=== PATIENT | female | born 1955 | race Caucasian/White ===

== ENCOUNTER 2024-10-04 07:56 | Day surgery (SDC) | payer MEDICARE, OTHER ==
[2024-10-04] MEDS ORDERED: LIDOCAINE HCL 2% 100 MG/5 ML IJ ONE (07:57)
[2024-10-04] MEDS ORDERED: propofoL IV ONE (09:06)
--- NOTE | 2024-10-04 11:46 | XRAY ---
Indication: Bilateral L4-S1 MBB. Intraoperative fluoroscopy provided for 11 seconds. Single digital spot image submitted for interpretation demonstrates posterior needle tips projecting over the expected left and right L4-S1 nerve roots. Correlate with intraoperative findings/report.
--- NOTE | 2024-10-04 12:55 | XRAY ---
11 seconds of fluoroscopy was used in surgery for a bilateral L4-S1 MBB.
== END 2024-10-04 09:46 | disposition home or self-care (01) ==
LOC: SDC-PAIN 07:56
PROVIDERS: ATTEND Psychiatry & Neurology Pain Medicine
DX: M47.816 Spondylosis without myelopathy or radiculopathy, lumbar region (principal); E11.9 Type 2 diabetes mellitus without complications
CPT/HCPCS: 64493; 64494; 72020; 77002; 82947; J2704

== ENCOUNTER 2024-11-15 07:04 | Day surgery (SDC) | payer MEDICARE, OTHER ==
[2024-11-15] MEDS ORDERED: BUPIVACAINE 0.5% VIAL IJ ONE (07:05)
[2024-11-15] MEDS ORDERED: propofoL IV ONE (08:17)
--- NOTE | 2024-11-15 10:34 | XRAY ---
Indication: Bilateral L4-S1 MBB. Intraoperative fluoroscopy provided for 10 seconds. Single digital spot image submitted for interpretation demonstrates posterior needle tips project over expected left and right L4-S1 nerve roots. Correlate with intraoperative findings/report.
--- NOTE | 2024-11-15 10:39 | XRAY ---
10 seconds of fluoroscopy was used in surgery for a bilateral L5-S1 MBB.
== END 2024-11-15 08:48 | disposition home or self-care (01) ==
LOC: SDC-PAIN 07:04
PROVIDERS: ATTEND Psychiatry & Neurology Pain Medicine
DX: M47.816 Spondylosis without myelopathy or radiculopathy, lumbar region (principal); E11.9 Type 2 diabetes mellitus without complications
CPT/HCPCS: 64493; 64494; 72020; 77002; 82947; J2704

== ENCOUNTER 2025-01-25 06:51 | Day surgery (SDC) | payer MEDICARE, OTHER ==
[2025-01-25] MEDS ORDERED: methylPREDNISolone acetate IM ONE (06:52)
[2025-01-25] MEDS ORDERED: LIDOCAINE HCL 1% AMPUL 5 ML IJ ONE (06:52)
[2025-01-25] MEDS ORDERED: BUPIVACAINE 0.5% VIAL IJ ONE (06:52)
[2025-01-25] MEDS ORDERED: propofoL IV ONE (08:06)
[2025-01-25] MEDS ORDERED: Lactated Ringers 1,000 ML IV ONE (08:31)
--- NOTE | 2025-01-25 10:56 | XRAY ---
Indication: Left L4-S1 RFA. Intraoperative fluoroscopy provided for 19 seconds. 4 digital spot image submitted for interpretation demonstrates posterior needle tips projecting over expected left L4-S1 nerve roots. Correlate with intraoperative findings/report.
--- NOTE | 2025-01-25 12:22 | XRAY ---
19 seconds of fluoroscopy was used in surgery for a left L4-S1 RFA.
== END 2025-01-25 08:42 | disposition home or self-care (01) ==
LOC: SDC-PAIN 06:51
PROVIDERS: ATTEND Psychiatry & Neurology Pain Medicine
DX: M47.817 Spondylosis without myelopathy or radiculopathy, lumbosacral region (principal); E11.9 Type 2 diabetes mellitus without complications
CPT/HCPCS: 64635; 64636; 72100; 82947; 99100; J1010; J2704